=== PATIENT | female | born 1965 | race African-American/Black ===

== ENCOUNTER 2017-02-20 09:48 | Emergency (ER) | payer OTHER ==
[~2017-02-20] VITALS: Ht 157.5 cm; Wt 1.6 kg
[~2017-02-20 09:48] MED LIST: MOTRIN 600 MG600 MG PO
[2017-02-20 10:04] VITALS: BP 114/73
--- NOTE | 2017-02-20 11:19 | ED NECK/BACK PAIN COMPLAINT ---
History of Present Illness General Chief Complaint: General Adult Stated Complaint: LOW BACK PAIN WITH RT ARM PAIN Source: patient, family, old records Exam Limitations: no limitations Vital Signs & Intake/Output Vital Signs & Intake/Output Vital Signs Date Time Temp Pulse Resp B/P B/P Pulse O2 O2 Flow FiO2 Mean Ox Delivery Rate 02/20 1123 98.0 02/20 1004 98.0 63 16 114/73 98 Room Air Room Air Allergies Coded Allergies: No Known Allergies (02/20/17) Reconcile Medications Cyclobenzaprine HCl 10 MG TABLET 1 TAB PO Q8P PAIN OR SPASM Ibuprofen (Motrin 600 MG Tab) 600 MG TABLET 1 TAB PO Q8 PRN PAIN Ibuprofen 600 MG TABLET 1 TAB PO TID PRN PAIN with food Oxycodone HCl/Acetaminophen (Percocet 5-325 MG Tablet) 5 MG-325 MG TABLET 1-2 TAB PO Q6P PRN PAIN Triage Note: PT TO TRIAGE WITH RIGHT ELBOW PAIN AND SWELLING FOR 3 DAYS, DENIES TRAUMA. PT ALSO STATES SHE HAS HAD MID BACK PAIN FOR 2 WEEKS. Triage Nurses Notes Reviewed? yes HPI: Patient presents with 2 separate complaints. First complaint is right elbow pain that radiates down towards her hand. The pain is been going on for the past 6-8 weeks. The pain is worse in the morning. There is no weakness or numbness. The pain is on the medial aspect of her right elbow. The pain is throbbing in nature. Patient states that every now and then she gets an electrical shock that radiates down towards her hand. Patient notices that the pain gets worse when he drinks her arm in towards her body while holding something. She rates the pain as 7 out of 10. Her other complaint is low back pain which is achy in nature. That pain has been there for the past 4 weeks. There is no known trauma. There is no radiation. There is no incontinence of bowel or bladder. The pain worsens when she bends forward. There are no fevers or chills. There is no weakness or numbness. She rates the back pain at 6 out of 10. Patient has not seen her primary care physician for either of these complaints. Past History Travel History Traveled to [place] past 21 day No Medical History Any Pertinent Medical History? see below for history Neurological: NONE EENT: NONE Cardiovascular: NONE Respiratory: asthma Gastrointestinal: NONE Hepatic: NONE Renal: NONE Musculoskeletal: NONE Psychiatric: NONE Endocrine: NONE Blood Disorders: NONE Cancer(s): NONE TECHNOLOGY ANALYST/Reproductive: NONE Tetanus Vaccine: 03/21/15 Surgical History Surgical History: hysterectomy, N Psychosocial History What is your primary language Slovak Tobacco Use: Never used ETOH Use: denies use Illicit Drug Use: denies illicit drug use Family History Hx Contributory? No Review of Systems Review of Systems Constitutional: Reports: no symptoms. Eyes: Reports: no symptoms. Respiratory: Reports: no symptoms. Cardiovascular: Reports: no symptoms. Musculoskeletal: Reports: see HPI, back pain, joint pain. Neurological/Psychological: Reports: no symptoms. Physical Exam Physical Exam General Appearance: well developed/nourished, alert, awake, mild distress Head: atraumatic, normal appearance Eyes: Bilateral: PERRL, EOMI. Ears, Nose, Throat, Mouth: hearing grossly normal, moist mucous membrane Neck: normal inspection, supple, full range of motion Respiratory: normal breath sounds, chest non-tender, no respiratory distress, lungs clear Cardiovascular: regular rate/rhythm, normal peripheral pulses Back: normal range of motion, muscle spasm, no vertebral tenderness, NO CVA TENDERNESS Extremities: TENDER TO PALPATION OVER MEDIAL TENDON RIGHT ELBOW Straight Leg Raising: Right: Negative. Left: Negative. Sensory: Medial Le: L4R, L4L. Top of Foot: 2: L5R, L5L. Sole of Foot: 2: SIR, SHAD. Motor: Deficit L4 Right: No Deficit L4 Left: No Deficit L5 Right: No Deficit L5 Left: No Deficit S1 Right: No Deficit S1 Right: No Walk on Heels: 4: L4 Left, L4 Right. Walk on Toes: 4: S1 Left, S1 Right. DTR: Patellar: 3: L4 Right, L4 Left. Achilles: 2: S1 Right, S1 Left. Neurologic/Psych: no motor/sensory deficits, awake, alert, oriented x 3, normal gait, normal mood/affect Skin: intact, normal color, warm/dry Progress Differential Diagnosis: TENDONITIIS, LOW BACK INJURY Plan of Care: Orders Procedure Date/time Status XRY-LUMBOSACRAL SPINE AP & LAT 02/20 1118 Active Current Medications Sig/Dustin Start time Last Medication Dose Stop Time Status Admin Cyclobenzaprine HCl 10 MG ONCE ONE 02/20 1130 AC 02/20 (Flexeril 10MG Tab) 02/20 1131 1123 Ibuprofen 600 MG ONCE ONE 02/20 1130 AC 02/20 (Motrin) 02/20 1131 1123 Oxycodone/ 1 TAB ONCE ONE 02/20 1130 AC 02/20 Acetaminophen 02/20 1131 1123 (Percocet) Diagnostic Imaging: Viewed by Me: Radiology Read. Discussed w/RAD: Radiology Read. Radiology Impression: PATIENT: NAYLA GARIBAY PRESENT AGE: 51 PATIENT ACCOUNT NO: [id number] : 67 LOCATION: [facility] ORDERING PHYSICIAN: RAMIN MICHAUD MD SERVICE DATE: 02/20/17 EXAM TYPE: RAD - XRY-LUMBOSACRAL SPINE AP & LAT EXAMINATION: XR LUMBOSACRAL SPINE CLINICAL INFORMATION: Low back pain. COMPARISON: None TECHNIQUE: AP and lateral views of the lumbosacral spine were obtained. FINDINGS: The height, alignment of the lumbar vertebrae is well-maintained. The intervertebral disc height is well maintained. Minimal endplate osteophyte formations consistent with mild spondylosis related changes are noted at L3-L4, L4-L5. The posterior appendages are intact. The paraspinal soft tissues are unremarkable. Few phleboliths are seen within the left hemipelvis. IMPRESSION: Mild degenerative spondylosis at L3 -L4 and L4-L5. Phleboliths within the left hemipelvis. DICTATED BY: JOB BERKOWITZ MD DATE/TIME DICTATED:02/20/171155 CUSTOMER SERVICE ASSOCIATE:JOVANNY DATE/ TIME TRANSCRIBED:02/20/171155 CONFIDENTIAL, DO NOT COPY WITHOUT APPROPRIATE AUTHORIZATION. <Electronically signed in Other Vendor System> SIGNED BY: JOB BERKOWITZ MD 02/20/17 1202 Departure Departure Disposition: HOME OR SELF CARE Condition: Stable Clinical Impression Primary Impression: Back pain Secondary Impressions: Tendonitis of elbow, right Referrals: SURAJ LOVE,JONI PATIENT HAS NO PRIMARY CARE DR (PCP/Family) Additional Instructions: FOLLOW UP WITH ORHTOPEDICS AND YOUR REGULAR DOCTOR RETURN FOR ANY CONCERNS use moist heat Departure Forms: Customer Survey General Discharge Information Prescriptions: Current Visit Scripts Cyclobenzaprine HCl 1 TAB PO Q8P #20 TAB Ibuprofen 1 TAB PO TID PRN PAIN #20 TAB with food Oxycodone HCl/Acetaminophen (Percocet 5-325 MG Tablet) 1-2 TAB PO Q6P PRN PAIN #20 TAB
[2017-02-20] MEDS ORDERED: CYCLOBENZAPRINE10 M1 PO (11:21)
[2017-02-20] MEDS ORDERED: IBUPROFEN600 M1 PO (11:21)
[2017-02-20] MEDS ORDERED: PERCOCET 5-3251 EACH PO (11:21)
--- NOTE | 2017-02-20 12:02 | RADIOLOGY REPORT ---
EXAMINATION: XR LUMBOSACRAL SPINE CLINICAL INFORMATION: Low back pain. COMPARISON: None TECHNIQUE: AP and lateral views of the lumbosacral spine were obtained. FINDINGS: The height, alignment of the lumbar vertebrae is well-maintained. The intervertebral disc height is well maintained. Minimal endplate osteophyte formations consistent with mild spondylosis related changes are noted at L3-L4, L4-L5. The posterior appendages are intact. The paraspinal soft tissues are unremarkable. Few phleboliths are seen within the left hemipelvis. IMPRESSION: Mild degenerative spondylosis at L3-L4 and L4-L5. Phleboliths within the left hemipelvis.
== END 2017-02-20 12:12 ==
LOC: ERH 09:48
DX: M54.5 Low back pain (principal); M77.8 Other enthesopathies, not elsewhere classified
CPT/HCPCS: 72100